=== PATIENT | female | born 1990 | race Two or more races ===

== ENCOUNTER 2020-02-12 14:06 | Emergency (ER) | payer MEDICAID, OTHER ==
[~2020-02-12] VITALS: Ht 172.7 cm; Wt 140.0 kg
--- NOTE | 2020-02-12 15:44 | NUR ---
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
[2020-02-12] MEDS ORDERED: SODIUM CHLORIDE 0.9% 1,000 ML IV ONE (16:17)
[2020-02-12] MEDS ORDERED: ACETAMINOPHEN 500 MG TABLET ONE ×2 (16:28→16:29)
[2020-02-12] MEDS ORDERED: SODIUM CHLORIDE FLUSH 10ML SYR IVF ONE (16:30)
[2020-02-12] MEDS ORDERED: ACETAMINOPHEN 325 MG TABLET PO ONE (16:30)
[2020-02-12 16:52] VITALS: BP 149/89
--- NOTE | 2020-02-12 16:57 | NUR ---
PT WITH COUGH X1 WEEK, GEN ACHES AND MALAISE. REPORTS TO SICK CONTACTS REPORTED, PT WITH TEMP 101.1 IN RM. PIV INITIATED, PT MEDICATED PER OCT. PT TO BP, CONT PULSE OX.
[2020-02-12 17:06] LABS: MEAN CORPUSCULAR HEMOGLOBIN 21.2 pg (27.0-34.8); MEAN CORPUSCULAR HGB CONC 30.8 g/dL (32.4-35.8); MEAN CORPUSCULAR VOLUME 68.6 fL (80-100); MEAN PLATELET VOLUME 7.3 fL (7.4-10.4); PLATELET COUNT 417 x10^3/uL (130-400); RED BLOOD COUNT 4.77 x10^6/uL (3.82-5.3); RED CELL DISTRIBUTION WIDTH 18.1 % (9.6-15.2)
[2020-02-12 17:10] LABS: ALANINE AMINOTRANSFERASE 28 U/L (12-78); ALBUMIN 3.4 g/dL (3.4-5.0); ANION GAP 8 mmol/L (5-15); CALCIUM 8.4 mg/dL (8.5-10.1); CHLORIDE 103 mmol/L (98-107); CREATININE 0.79 mg/dL (0.55-1.02)
[2020-02-12 17:12] LABS: ALKALINE PHOSPHATASE 68 U/L (45-117); BILIRUBIN,TOTAL 0.2 mg/dL (0.2-1.0); TOTAL PROTEIN 8.3 g/dL (6.4-8.2)
[2020-02-12 17:28] LABS: MD YES
[2020-02-12 17:33] LABS: <PLATELET ESTIMATE> INCREASED; BAND#(MANUAL) 0.15 x10^3/uL; BANDS%(MANUAL) 3 % (0-7); LYMPH#(MANUAL) 1.03 x10^3/uL (1-3.4); LYMPHS% (MANUAL) 21 % (22-44); MONOS#(MANUAL) 0.39 x10^3/uL (0.3-2.7); MONOS% (MANUAL) 8 % (2-9); SEG#(MANUAL) 3.33 x10^3/uL (1.8-6.8); SEGS% (MANUAL) 68 % (42-75)
[2020-02-12 17:34] LABS: ANISOCYTOSIS 1+; OVALOCYTES 1+; SMALL PLATELETS 1+
[2020-02-12 17:35] LABS: POLYCHROMASIA 1+
== END 2020-02-12 18:51 | disposition home or self-care (01) ==
LOC: ED 18:10
DX: U07.1 COVID-19 (principal); D53.9 Nutritional anemia, unspecified; R50.9 Fever, unspecified; R05 Cough; R07.89 Other chest pain; R06.02 Shortness of breath
CPT/HCPCS: 36415; 71045; 80053; 83605; 84145; 85025; 87040; 87077; 87635; 99284; J7030

== ENCOUNTER 2020-02-14 22:11 | Inpatient (IN) | payer OTHER ==
[~2020-02-14] VITALS: Ht 167.6 cm; Wt 137.2 kg
[2020-02-14] MEDS ORDERED: SODIUM CHLORIDE 0.9% 1,000 ML IV ONE (22:39)
[2020-02-14] MEDS ORDERED: SODIUM CHLORIDE FLUSH 10ML SYR IVF ONE (23:00)
[2020-02-14] MEDS ORDERED: ACETAMINOPHEN 500 MG TABLET PO ONE (23:00)
[2020-02-14] MEDS ORDERED: DOXYCYCLINE 100 MG in DEXTROSE 5% 250 ML IV SCH (23:00)
[2020-02-14] MEDS ORDERED: CEFTRIAXONE PMX 1GM/50ML 50 ML IVPB ONE (23:00)
[2020-02-14 23:20] LABS: ALBUMIN 3.3 g/dL (3.4-5.0); ANION GAP 6 mmol/L (5-15); CALCIUM 8.1 mg/dL (8.5-10.1); CHLORIDE 105 mmol/L (98-107)
[2020-02-14 23:24] LABS: ALANINE AMINOTRANSFERASE 26 U/L (12-78); ALKALINE PHOSPHATASE 61 U/L (45-117); BILIRUBIN,TOTAL 0.4 mg/dL (0.2-1.0); CREATININE 0.79 mg/dL (0.55-1.02)
[2020-02-14] MEDS ORDERED: ACETAMINOPHEN 500 MG TABLET ONE (23:54)
[2020-02-14] MEDS ORDERED: CEFTRIAXONE PMX 1GM/50ML 50 ML ONE (23:54)
[2020-02-15 00:03] LABS: BASOPHILS # (AUTO) 0.02 x10^3/uL (0-0.1); BASOPHILS % (AUTO) 0 % (0-1); EOSINOPHILS % (AUTO) 0 % (1-7); LYMPHOCYTES # (AUTO) 1.09 x10^3/uL (1-3.4); LYMPHOCYTES % (AUTO) 29 % (22-44); MD NO; MEAN CORPUSCULAR HEMOGLOBIN 20.9 pg (27.0-34.8); MEAN CORPUSCULAR HGB CONC 30.5 g/dL (32.4-35.8); MEAN CORPUSCULAR VOLUME 68.7 fL (80-100); MEAN PLATELET VOLUME 7.3 fL (7.4-10.4); MONOCYTES # (AUTO) 0.29 x10^3/uL (0.2-0.8); MONOCYTES % (AUTO) 8 % (2-9); NEUTROPHILS % (AUTO) 62 % (42-75); PLATELET COUNT 331 x10^3/uL (130-400); RED BLOOD COUNT 4.79 x10^6/uL (3.82-5.3); RED CELL DISTRIBUTION WIDTH 18.3 % (9.6-15.2)
--- NOTE | 2020-02-15 00:06 | NUR ---
PT RESTING ON GURNEY, CALL LIGHT BY SIDE. IV STARTED, FLUIDS AND IV ABX INFUSING AT THIS TIME. PT VS IMPROVING. WILL CONT TO MONITOR.
[2020-02-15] MEDS: SODIUM CHLORIDE 0.9% 1,000 ML IV SCH ×2 (01:35→11:35)
[2020-02-15] MEDS ORDERED: DOCUSATE 100 MG CAPSULE PO PRN (02:00)
[2020-02-15] MEDS ORDERED: METHOCARBAMOL 500 MG TABLET PO PRN (02:00)
[2020-02-15] MEDS ORDERED: ONDANSETRON 2MG/ML, 2ML IVPush PRN (02:00)
[2020-02-15] MEDS ORDERED: ACETAMINOPHEN 325 MG TABLET PO PRN (02:00)
[2020-02-15] MEDS ORDERED: hydrALAzine 20 MG/ML, 1ML IVPush PRN (02:00)
[2020-02-15] MEDS ORDERED: DOXYCYCLINE 100 MG in DEXTROSE 5% 250 ML IV SCH ×2 (02:00→13:00)
[2020-02-15] MEDS ORDERED: HYDROcodone/APAP 5/325 TABLET PO PRN (02:00)
[2020-02-15] MEDS ORDERED: ASA/APAP/ CAFFEINE TABLET PO PRN (02:00)
[2020-02-15] MEDS ORDERED: morphine SULFATE 10 MG/ML, 1ML IVPush PRN (02:00)
[2020-02-15] MEDS: CEFTRIAXONE PMX 1GM/50ML 50 ML IV SCH ×2 (02:00→14:00)
[2020-02-15] MEDS ORDERED: ZOLPIDEM 5MG TABLET PO PRN (02:00)
[2020-02-15] MEDS ORDERED: ENOXAPARIN 40 MG/0.4 ML ONE (02:20)
--- NOTE | 2020-02-15 02:35 | NUR ---
PT TO RESTROOM AT THIS TIME. HOSPITAL BED PLACED IN ROOM PT IS A COVID R/O HOLD. PT REQUESTING FOOD. VSS
[2020-02-15] MEDS: ENOXAPARIN 40 MG/0.4 ML SQ SCH (02:36)
--- NOTE | 2020-02-15 04:59 | NUR ---
REPORT RECIEVED FORM DEANNE PERRY
--- NOTE | 2020-02-15 06:54 | NUR ---
REPORT GIVEN TO JAVIER PERRY
--- NOTE | 2020-02-15 07:14 | NUR ---
CARE OF PATIENT ASSUMED. AWAITING ADMIT BED.
--- NOTE | 2020-02-15 08:40 | NUR ---
PATIENT AMBULATED TO BATHROOM OFF OXYGEN. PATIENT'S O2 SAT DROPED TO 60%.
[2020-02-15] MEDS: FAMOTIDINE 20 MG TABLET PO SCH ×2 (09:00→20:50)
[2020-02-15 09:26] LABS: HCT (SEDRATE) 30.7 % (34.6-47.8)
[2020-02-15] MEDS ORDERED: IRON DEXTRAN COMPLEX 25 MG in SODIUM CHLORIDE 0.9% 50 ML IV ONE (09:30)
--- NOTE | 2020-02-15 11:00 | NUR ---
Patient alert and orriented. Vital signs stable. Pt medicated per MAR. Call light with in reach.
[2020-02-15] MEDS: GUAIFENESIN/DM 200-20MG, 10ML UDC PO PRN (11:23)
[2020-02-15] MEDS ORDERED: IRON DEXTRAN COMPLEX IV ONE (12:00)
[2020-02-15] MEDS ORDERED: SODIUM CHLORIDE 0.9% IV ONE (12:00)
[2020-02-15] MEDS ORDERED: DOXYCYCLINE 100MG TABLET ONE (13:32)
[2020-02-15] MEDS ORDERED: CEFTRIAXONE PMX 1GM/50ML 50 ML ONE (13:32)
[2020-02-15] MEDS: DOXYCYCLINE 100MG TABLET PO SCH ×2 (14:00→20:50)
--- NOTE | 2020-02-15 14:00 | NUR ---
New PIV started. Old IV site causing discomfort. PT medicated per mar. Awaiting Hospital admit bed
[2020-02-15 16:58] VITALS: BP 140/79
[2020-02-15 20:45] VITALS: BP 123/79
[2020-02-16 01:26] VITALS: BP 132/76
[2020-02-16] MEDS: CEFTRIAXONE PMX 1GM/50ML 50 ML IV SCH ×2 (01:29→14:28)
[2020-02-16] MEDS: ENOXAPARIN 40 MG/0.4 ML SQ SCH (01:29)
[2020-02-16 04:54] LABS: ANION GAP 3 mmol/L (5-15); CALCIUM 8.2 mg/dL (8.5-10.1); CHLORIDE 108 mmol/L (98-107)
[2020-02-16 04:55] LABS: TRANSFERRIN 263 mg/dL (200-360)
[2020-02-16 05:19] LABS: MEAN CORPUSCULAR HEMOGLOBIN 20.9 pg (27.0-34.8); MEAN CORPUSCULAR HGB CONC 30.3 g/dL (32.4-35.8); MEAN CORPUSCULAR VOLUME 68.8 fL (80-100); MEAN PLATELET VOLUME 7.7 fL (7.4-10.4); PLATELET COUNT 221 x10^3/uL (130-400); RED BLOOD COUNT 4.59 x10^6/uL (3.82-5.3); RED CELL DISTRIBUTION WIDTH 18.1 % (9.6-15.2)
[2020-02-16 05:20] LABS: MD YES
[2020-02-16 05:23] LABS: ANISOCYTOSIS 1+; BAND#(MANUAL) 0.04 x10^3/uL; BANDS%(MANUAL) 1 % (0-7); LYMPH#(MANUAL) 1.96 x10^3/uL (1-3.4); LYMPHS% (MANUAL) 49 % (22-44); MONOS#(MANUAL) 0.32 x10^3/uL (0.3-2.7); MONOS% (MANUAL) 8 % (2-9); SEG#(MANUAL) 1.68 x10^3/uL (1.8-6.8); SEGS% (MANUAL) 42 % (42-75)
[2020-02-16 05:24] LABS: MICROCYTOSIS 2+; OVALOCYTES 1+; POLYCHROMASIA 1+
[2020-02-16 05:25] LABS: <PLATELET ESTIMATE> ADEQUATE; <PLT MORPHOLOGY> NORMAL PLT MORPH
[2020-02-16] MEDS: SODIUM CHLORIDE 0.9% 1,000 ML IV SCH (05:47)
[2020-02-16] MEDS: GUAIFENESIN/DM 200-20MG, 10ML UDC PO PRN (05:55)
[2020-02-16] MEDS ORDERED: POTASSIUM CHLORIDE 20 MEQ TAB.ER.PRT PO ONE (07:00)
[2020-02-16] MEDS: FAMOTIDINE 20 MG TABLET PO SCH ×2 (07:57→20:57)
[2020-02-16] MEDS: DOXYCYCLINE 100MG TABLET PO SCH ×2 (07:57→20:57)
[2020-02-16 08:00] VITALS: BP 132/76
[2020-02-16] MEDS: ASCORBIC ACID 500 MG TABLET PO SCH ×3 (10:35→20:57)
[2020-02-16] MEDS: CHOLECALCIFEROL 5,000u TAB PO SCH (10:35)
[2020-02-16] MEDS: ZINC SULFATE 220 MG CAPSULE PO SCH (10:35)
[2020-02-16 14:32] VITALS: BP 139/76
[2020-02-16] MEDS: FERROUS SULFATE 325 MG TABLET PO SCH (16:46)
[2020-02-16 20:53] VITALS: BP 113/57
[2020-02-16] MEDS ORDERED: MELATONIN 5 MG TABLET PO SCH (21:00)
[2020-02-17 00:54] VITALS: BP 129/80
[2020-02-17] MEDS ORDERED: ENOXAPARIN 60 MG/0.6 ML SQ SCH (02:00)
[2020-02-17] MEDS: CEFTRIAXONE PMX 1GM/50ML 50 ML IV SCH ×2 (02:23→14:07)
[2020-02-17] MEDS: FERROUS SULFATE 325 MG TABLET PO SCH ×2 (09:32→17:12)
[2020-02-17] MEDS: ZINC SULFATE 220 MG CAPSULE PO SCH (09:32)
[2020-02-17] MEDS: CHOLECALCIFEROL 5,000u TAB PO SCH (09:32)
[2020-02-17] MEDS: ASCORBIC ACID 500 MG TABLET PO SCH ×2 (09:32→17:12)
[2020-02-17] MEDS: DOXYCYCLINE 100MG TABLET PO SCH (09:32)
[2020-02-17] MEDS: FAMOTIDINE 20 MG TABLET PO SCH (09:32)
[2020-02-17 09:41] VITALS: BP 129/80
[2020-02-17] MEDS ORDERED: APIXABAN 5 MG TABLET PO SCH (10:30)
[2020-02-17] MEDS ORDERED: ZINC220C7 PO (11:07)
[2020-02-17] MEDS ORDERED: PRED20TA PO (11:07)
[2020-02-17] MEDS ORDERED: APIX5TAB PO (11:07)
[2020-02-17] MEDS ORDERED: CHOL500045 PO (11:07)
[2020-02-17] MEDS ORDERED: MELA5TAB14 PO (11:07)
[2020-02-17] MEDS ORDERED: FERR-51 PO (11:07)
[2020-02-17] MEDS ORDERED: ASCO500T9 PO (11:07)
[2020-02-17] MEDS ORDERED: DOXY100T PO (11:07)
[2020-02-17 14:12] VITALS: BP 129/74
== END 2020-02-17 18:04 | disposition home or self-care (01) | DRG 871 ==
LOC: ED 23:31 → EDIP 02-15 00:28 → UNDOADMIN 02-15 00:28 → EDIP 02-15 01:35 → ICU 02-15 16:33
PROVIDERS: ADMIT Internal Medicine; ATTEND Hospitalist
DX: A41.89 Other specified sepsis (principal); J12.89 Other viral pneumonia; U07.1 COVID-19; Z68.42 Body mass index [BMI] 45.0-49.9, adult; D50.9 Iron deficiency anemia, unspecified; E66.01 Morbid (severe) obesity due to excess calories; E87.5 Hyperkalemia; N92.0 Excessive and frequent menstruation with regular cycle; R09.02 Hypoxemia
CPT/HCPCS: 36415; 71045; 80053; 80069; 82728; 83036; 83540; 83550; 83605; 83615; 83735; 84145; 84466; 85025; 85379; 85651; 86140; 87040; 87081; 87635; 93005; 96365; 99291; G0378; J0696; J1650; J1750; J2405; J7060; J7030; J7050; J7512